=== PATIENT | male | born 1965 | race Caucasian/White ===

== ENCOUNTER 2018-09-25 05:50 | Day surgery (SDC) | payer BC ==
[~2018-09-25] VITALS: Ht 170.2 cm; Wt 93.4 kg
--- NOTE | 2018-09-25 06:54 | NUR ---
History, Chart, Medications and Allergies reviewed before start of procedure.Patient confirms NPO status and agrees with scheduled surgery. Patient reports completing Chlorhexadine shower X2 prior to admission to hospital.Surgical site prepped with 2% Chlorhexidine cloth wipe.
--- NOTE | 2018-09-25 08:52 | NUR ---
PT AWAKE, ABD BINDER IN PLACE. VSS. PT STATES 5/10 PAIN. PT SITTING UP AND EATING CRACKERS DRINKING WATER. TOOK PAIN PILL.
--- NOTE | 2018-09-25 09:23 | NUR ---
Discharge instructions reviewed with patient. Patient verbalizes understanding. Copy given to patient to take home. HAS RX. PT DOING WELL. TOLERATED PAIN PILL AND SNACK. [place] [facility]. BINDER ON. PT HAS NO QUESTIONS OR CONCERNS OF BEING D/C. Patient States Post-Procedure ride home has been arranged. Discharged via wheelchair to private car for ride home.
--- NOTE | 2018-09-25 09:27 | NUR ---
PT HAS ALL PERSONAL BELONGINGS. PT STABLE FOR D/C
== END 2018-09-25 22:56 | disposition home or self-care (01) ==
LOC: ORSCMMR 05:50 → ORD 07:30 → ORSCMMR 07:30
PROVIDERS: Surgery
PROC: 0WQF0ZZ Repair Abdominal Wall, Open Approach (ICD-10-PCS; principal; 2018-09-25 07:30)
DX: K42.0 Umbilical hernia with obstruction, without gangrene (principal)
CPT/HCPCS: A9270-GY; J0690; J1100; J2250; J2405; J2710; J3010; J7120

== ENCOUNTER → 2019-05-17 | Outpatient (CLI) | payer BC | LOC: LAB SHORT 08:01 → PLD 08:01 | DX: C44.612 Basal cell carcinoma of skin of right upper limb, including shoulder (principal) | CPT/HCPCS: 88305 ==

== ENCOUNTER 2019-07-18 06:44 | Day surgery (SDC) | payer BC ==
[~2019-07-18] VITALS: Ht 170.2 cm; Wt 90.8 kg
== END 2019-07-18 09:08 | disposition home or self-care (01) ==
LOC: ORSCSDS 06:44
PROVIDERS: Internal Medicine Gastroenterology
PROC: 0DBK8ZX Excision of Ascending Colon, Via Natural or Artificial Opening Endoscopic, Diagnostic (ICD-10-PCS; principal; 2019-07-18 08:00)
PROC: 0DBL8ZX Excision of Transverse Colon, Via Natural or Artificial Opening Endoscopic, Diagnostic (ICD-10-PCS; principal; 2019-07-18 08:00)
DX: Z12.11 Encounter for screening for malignant neoplasm of colon (principal); D12.2 Benign neoplasm of ascending colon; D12.3 Benign neoplasm of transverse colon; K63.5 Polyp of colon
CPT/HCPCS: 88305; J2405; J2704; J7120

== ENCOUNTER 2020-06-30 11:06 | Day surgery (SDC) | payer OTHER, BC ==
[~2020-06-30] VITALS: Ht 172.7 cm; Wt 97.2 kg
--- NOTE | 2020-06-30 12:31 | NUR ---
Ambulatory in Day Surgery Surgical site prepped with 2% Chlorhexidine cloth wipe. History, Chart, Medications and Allergies reviewed before start of procedure.Lungs clear T/O to Auscultation. Patient confirms NPO status and agrees with scheduled surgery. Patient reports completing Chlorhexadine shower X2 prior to admission to hospital.
--- NOTE | 2020-06-30 15:32 | NUR ---
Discharge instructions reviewed with patient. Patient verbalizes understanding. Copy given to patient to take home. [facility] DRGS GIVEN TO PT TO CHANGE INSTRUCTED. LEG BRACE ON. PT DRESSED WITH ASSIST AND ABLE TO GET INTO W/C WITHOUT ASSIST. Discharged via wheelchair to private car for ride home.
== END 2020-06-30 23:00 | disposition home or self-care (01) ==
LOC: ORSCMMR 11:06
PROVIDERS: Orthopaedic Surgery
PROC: 0LMM0ZZ Reattachment of Left Upper Leg Tendon, Open Approach (ICD-10-PCS; principal; 2020-06-30 12:30)
DX: S76.812A Strain of other specified muscles, fascia and tendons at thigh level, left thigh, initial encounter (principal)
CPT/HCPCS: A9270; J0171; J0690; J0735; J1100; J1885; J2250; J2370; J2405; J2704; J2795; J3010; J7120

== ENCOUNTER 2024-09-04 09:36 | Day surgery (SDC) | payer OTHER ==
[~2024-09-04] VITALS: Ht 170.2 cm; Wt 93.5 kg
[~2024-09-04 09:36] MED LIST: Lactated Ringer's 1,000 ML IV ONE; propofoL 50 ML IV ONE
[2024-09-04] MEDS ORDERED: Lactated Ringer's 1,000 ML IV ONE (11:09)
[2024-09-04 13:16] VITALS: BP 111/73
== END 2024-09-04 13:00 | disposition home or self-care (01) ==
LOC: ORSCSDS 09:36
PROVIDERS: Internal Medicine Gastroenterology
PROC: 0DBK8ZX Excision of Ascending Colon, Via Natural or Artificial Opening Endoscopic, Diagnostic (ICD-10-PCS; principal; 2024-09-04 11:00)
DX: Z12.11 Encounter for screening for malignant neoplasm of colon (principal); Z86.0101 Personal history of adenomatous and serrated colon polyps; D12.2 Benign neoplasm of ascending colon; K64.8 Other hemorrhoids; I10 Essential (primary) hypertension; E78.2 Mixed hyperlipidemia; R79.9 Abnormal finding of blood chemistry, unspecified
CPT/HCPCS: 88305; J2704; J7120